=== PATIENT | female | born 1985 | race Two or more races ===

== ENCOUNTER 2018-07-13 06:40 | Inpatient (IN) | payer OTHER ==
[~2018-07-13] VITALS: Ht 172.7 cm; Wt 91.6 kg
[2018-07-13] MEDS ORDERED: PRENATAL 19 TA1 EACH PO (08:08)
== END 2018-07-15 11:14 | disposition home or self-care (01) | DRG 807 ==
LOC: LDR 06:40 → OB/GYN 18:50 → LDR 07-18 13:22
PROVIDERS: ADMIT Obstetrics & Gynecology
PROC: 10E0XZZ Delivery of Products of Conception, External Approach (ICD-10-PCS; principal; 2018-07-13)
PROC: 4A1HXCZ Monitoring of Products of Conception, Cardiac Rate, External Approach (ICD-10-PCS; 2018-07-13)
PROC: 4A033R1 Measurement of Arterial Saturation, Peripheral, Percutaneous Approach (ICD-10-PCS; 2018-07-13)
DX: O80 Encounter for full-term uncomplicated delivery (principal); Z37.0 Single live birth; Z3A.39 39 weeks gestation of pregnancy